=== PATIENT | female | born 1960 | race Caucasian/White ===

== ENCOUNTER 2020-07-04 05:17 | Observation (INO) ==
[2020-07-04 06:19] LABS: Hematocrit 32.1 % (35.3-44.9); Hemoglobin 10.2 g/dL (11.5-15.4); Mean Corpuscular HGB Conc 31.8 g/dL (31.6-35.5); Mean Corpuscular Hemoglobin 32.2 pg (28.0-33.3); Mean Corpuscular Volume 101.3 fL (83.0-100.0); Mean Platelet Volume 10.1 fL (9.4-12.4); Platelet Count 156 K/mcL (140-400); Red Blood Count 3.17 M/mcL (3.82-4.97); Red Cell Distribution Width 14.5 % (11.5-14.5); White Blood Count 4.2 K/mcL (4.3-11.1)
[2020-07-04 06:23] LABS: INR 1.3; Prothrombin Time 14.8 Seconds (9.4-12.1)
[2020-07-04 07:31] LABS: Lymphocytes # 0.3 K/mcL (0.6-4.6); Monocytes # 0.7 K/mcL (0.0-1.3); Neutrophils # 3.3 K/mcL (1.6-8.9); Platelet Estimate Normal (Normal)
[2020-07-04] MEDS ORDERED: Isovue-370 500 ML BOTTLE IVP ONE (07:36)
[2020-07-04 08:07] LABS: Alanine Aminotransferase 21 Units/L (7-52); Albumin 2.8 g/dL (3.5-5.7); Albumin/Globulin Ratio 0.7 (1.1-2.2); Alkaline Phosphatase 71 Units/L (34-104); Aspartate Amino Transferase 48 Units/L (13-39); BUN/Creatinine Ratio 9 (6-26); Bilirubin,Direct 0.6 mg/dL (0.0-0.2); Bilirubin,Indirect 1.3 mg/dL (0.0-1.0); Bilirubin,Total 1.9 mg/dL (0.3-1.0); Blood Urea Nitrogen 4 mg/dL (8-23); Calcium 8.3 mg/dL (8.6-10.3); Carbon Dioxide 24 mEq/L (23-29); Chloride 103 mEq/L (98-107); Globulin 3.8 g/dL (2.4-3.5); Glucose 124 mg/dL (70-105); Osmolality,Calculated 274 (280-300); Potassium 3.3 mEq/L (3.5-5.1); Sodium 133 mEq/L (136-145); Total Protein 6.6 g/dL (6.4-8.9); eGFR For African Americans > 60 (> 60); eGFR For Non-African Americans > 60 (> 60)
[2020-07-04] MEDS ORDERED: Ondansetron 4 MG/2 ML VIAL IVP PRN (09:48)
[2020-07-04] MEDS ORDERED: Acetaminophen 325 MG TABLET PO PRN (09:48)
[2020-07-04] MEDS ORDERED: Naloxone 0.4 MG/ML INJ IVP PRN (09:48)
[2020-07-04] MEDS ORDERED: Potassium Chloride Elixir 20 MEQ/15 ML UDC PO ONE (10:27)
[2020-07-04] MEDS: Albumin 25% 25gram/100mL 25 GM/100 ML IV.SOLN IVPB SCH ×2 (10:57→15:45)
[2020-07-04] MEDS: Sucralfate 1 GM TABLET PO SCH ×2 (10:58→15:45)
[2020-07-04 11:01] VITALS: BP 124/65
== END 2020-07-04 18:25 | disposition home or self-care (01) ==
LOC: 2ANU 05:17 → EMEROOARM 05:17 → 2ANU 10:29
PROVIDERS: ADMIT Internal Medicine; ATTEND Internal Medicine

== ENCOUNTER 2020-12-22 06:45 | Observation (INO) ==
[2020-12-22] MEDS ORDERED: *HR* Vasopressin 20 UNIT/ML VIAL ONE (07:47)
[2020-12-22] MEDS ORDERED: Heparin 1,000 UNITS/500 mL 500 ML ONE (08:11)
[2020-12-22] MEDS ORDERED: Lidocaine/EPI 1:100k 1% 50 ML VIAL ONE (08:11)
[2020-12-22] MEDS ORDERED: 0.9 % Sodium Chloride 500 ML ONE (08:11)
[2020-12-22] MEDS ORDERED: CeFAZolin 2,000MG/50ML DUPLEX 2,000 MG/50 ML BAG IVPB ONE (08:58)
[2020-12-22] MEDS ORDERED: Ringers Solution, Lactated 1,000 ML IVC SCH ×2 (09:00)
[2020-12-22] MEDS ORDERED: Albumin Human 5% 12.5 GM/250 ML IV.SOLN ONE (09:11)
[2020-12-22] MEDS ORDERED: *HR* FentaNYL (PF) 100 MCG/2 ML VIAL ONE (09:33)
[2020-12-22] MEDS ORDERED: Isovue-300 50ML VIAL IVP ONE (10:07)
[2020-12-22] MEDS ORDERED: Sugammadex Sodium 200 MG/2 ML VIAL IV ONE (10:44)
[2020-12-22] MEDS ORDERED: Ondansetron 4 MG/2 ML VIAL IVP PRN (12:04)
[2020-12-22] MEDS ORDERED: Acetaminophen 325 MG TABLET PO PRN (12:04)
[2020-12-22] MEDS ORDERED: Naloxone 0.4 MG/ML INJ IVP PRN (12:04)
[2020-12-22] MEDS ORDERED: *HR* Propofol 200 MG/20 ML VIAL IVP ONE (15:38)
[2020-12-22] MEDS ORDERED: *HR* Phenylephrine 10 MG/ML VIAL IVC ONE (15:38)
[2020-12-22] MEDS ORDERED: Ondansetron 4 MG/2 ML VIAL IVP ONE (15:38)
[2020-12-22] MEDS ORDERED: Lidocaine -MPF 4% 5 ML AMPUL TP ONE (15:38)
[2020-12-22] MEDS ORDERED: EPHEDrine 50 MG/ML VIAL IVP ONE (15:38)
[2020-12-22] MEDS ORDERED: *HR* Etomidate 20 MG/10 ML AMPUL IVP ONE (15:38)
[2020-12-22] MEDS ORDERED: *HR* Rocuronium Bromide 50 MG/5 ML VIAL IVP ONE (15:38)
[2020-12-22] MEDS ORDERED: Lidocaine -MPF 2% 5 ML VIAL SQ ONE (15:38)
[2020-12-22] MEDS ORDERED: *HR* Succinylcholine 200 MG/10 ML VIAL IVP ONE (15:38)
[2020-12-23 02:43] LABS: Basophils % 0.1 %; Hematocrit 32.3 % (35.3-44.9); Hemoglobin 11.6 g/dL (11.5-15.4); Immature Granulocytes % 0.3 % (0-4); Lymphocytes # 0.4 K/mcL (0.6-4.6); Lymphocytes % 5.3 %; Mean Corpuscular HGB Conc 35.9 g/dL (31.6-35.5); Mean Corpuscular Hemoglobin 35.5 pg (28.0-33.3); Mean Corpuscular Volume 98.8 fL (83.0-100.0); Mean Platelet Volume 10.1 fL (9.4-12.4); Monocytes # 0.4 K/mcL (0.0-1.3); Monocytes % 5.6 %; Neutrophils # 6.9 K/mcL (1.6-8.9); Platelet Count 139 K/mcL (140-400); Red Blood Count 3.27 M/mcL (3.82-4.97); Red Cell Distribution Width 14.5 % (11.5-14.5); Segmented Neutrophils % 88.7 %; White Blood Count 7.7 K/mcL (4.3-11.1)
[2020-12-23 03:03] LABS: Albumin 2.7 g/dL (3.5-5.7); Albumin/Globulin Ratio 0.8 (1.1-2.2); Bilirubin,Direct 0.8 mg/dL (0.0-0.2); Bilirubin,Indirect 1.4 mg/dL (0.0-1.0); Bilirubin,Total 2.2 mg/dL (0.3-1.0); Globulin 3.4 g/dL (2.4-3.5); Total Protein 6.1 g/dL (6.4-8.9)
[2020-12-23 03:04] LABS: BUN/Creatinine Ratio 16 (6-26); Blood Urea Nitrogen 8 mg/dL (8-23); Calcium 8.6 mg/dL (8.6-10.3); Carbon Dioxide 25 mEq/L (23-29); Chloride 100 mEq/L (98-107); Glucose 174 mg/dL (70-105); Magnesium 1.7 mg/dL (1.6-2.6); Osmolality,Calculated 275 (280-300); Phosphorous 2.2 mg/dL (2.7-4.5); Potassium 3.5 mEq/L (3.5-5.1); Sodium 131 mEq/L (136-145); eGFR For African Americans > 60 (> 60); eGFR For Non-African Americans > 60 (> 60)
[2020-12-23 07:01] VITALS: BP 101/56
[2020-12-23] MEDS ORDERED: Aspirin 81 MG TAB.CHEW PO SCH (09:00)
[2020-12-23 11:31] VITALS: PULSE 82; TEMP 97.8; O2SAT 92
== END 2020-12-23 15:39 | disposition home or self-care (01) ==
LOC: INTRAD 06:45 → 2NNU 06:45 → SUATTDRO 11:53
PROVIDERS: ADMIT Internal Medicine; ATTEND Internal Medicine